=== PATIENT | female | born 1945 | race Asian ===

== ENCOUNTER 2020-05-17 15:30 | Emergency (ER) | payer BC ==
[~2020-05-17] VITALS: Ht 149.9 cm; Wt 47.1 kg
--- NOTE | 2020-05-17 15:52 | NUR ---
PT TO ER 17. DAUGHTER IS HISTORIAN. STATES SHE "LOST HER HEARING " RECENTLY. NO TRUAMA, NO OTHER S/S OR COMPLAINTS/ PT AOX4 CAN UNDERSTAND IF SPOKEN TO LOUDLY
[2020-05-17 16:38] LABS: BASOPHILS % (AUTO) 0 % (0-1); EOSINOPHILS % (AUTO) 0 % (1-7); LYMPHOCYTES % (AUTO) 26 % (22-44); MEAN CORPUSCULAR HEMOGLOBIN 32.3 pg (27.0-34.8); MEAN CORPUSCULAR HGB CONC 33.8 g/dL (32.4-35.8); MEAN PLATELET VOLUME 8.6 fL (7.4-10.4); MONOCYTES % (AUTO) 8 % (2-9); NEUTROPHILS % (AUTO) 65 % (42-75); PLATELET COUNT 182 x10^3/uL (130-400); RED CELL DISTRIBUTION WIDTH 13.3 % (9.6-15.2)
[2020-05-17 16:39] LABS: MD NO
[2020-05-17 16:43] LABS: ALANINE AMINOTRANSFERASE 21 U/L (12-78); ALBUMIN 3.9 g/dL (3.4-5.0); ANION GAP 4 mmol/L (5-15); CALCIUM 8.9 mg/dL (8.5-10.1); CHLORIDE 113 mmol/L (98-107); CREATININE 0.81 mg/dL (0.55-1.02)
[2020-05-17 16:45] LABS: ALKALINE PHOSPHATASE 78 U/L (45-117); BILIRUBIN,TOTAL 0.6 mg/dL (0.2-1.0); TOTAL PROTEIN 6.8 g/dL (6.4-8.2)
--- NOTE | 2020-05-17 17:29 | NUR ---
[facility]
[2020-05-17] MEDS ORDERED: GADOTERATE 5 MMOL/10 ML VIAL ONE (18:00)
--- NOTE | 2020-05-17 18:58 | NUR ---
BACK FROM CT
[2020-05-17 19:33] VITALS: BP 122/74
== END 2020-05-17 19:35 | disposition home or self-care (01) ==
LOC: ED 18:36
DX: H91.8X3 Other specified hearing loss, bilateral (principal); R29.810 Facial weakness; R50.9 Fever, unspecified
CPT/HCPCS: 36415; 70553; 80053; 85025; 99285; A9575

== ENCOUNTER 2020-10-09 17:30 | Emergency (ER) | payer BC ==
[~2020-10-09] VITALS: Ht 152.4 cm; Wt 43.1 kg
[2020-10-09 17:36] VITALS: BP 161/72
--- NOTE | 2020-10-09 18:18 | NUR ---
ALL RESULTS ARE BACK AT THIS TIME. CHART UP FOR RECHECK.
--- NOTE | 2020-10-09 19:47 | NUR ---
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 N/O FOR XRAY.
--- NOTE | 2020-10-09 20:10 | NUR ---
ALL RESULTS ARE BACK AT THIS TIME. CHART UP FOR RECHECK.
== END 2020-10-09 20:39 | disposition home or self-care (01) ==
LOC: ED 18:00
DX: S52.122A Displaced fracture of head of left radius, initial encounter for closed fracture (principal); W18.30XA Fall on same level, unspecified, initial encounter; Y93.89 Activity, other specified; Y92.009 Unspecified place in unspecified non-institutional (private) residence as the place of occurrence of the external cause; Y99.8 Other external cause status
CPT/HCPCS: 29105; 99284